=== PATIENT | male | born 1995 | race Caucasian/White ===

== ENCOUNTER 2020-02-06 05:45 | Emergency (ER) | payer OTHER ==
[2020-02-06] MEDS ORDERED: Lactated Ringers 1,000 ML IV SCH (06:00)
--- NOTE | 2020-02-06 06:03 | EDM.PDOC ---
ED HPI GENERAL MEDICAL PROBLEM <CelesteGrabiel Burciaga - Last Filed: 02/06/20 10:06> - General Source of Information: Reports: Patient, EMS History Limitations: Reports: No Limitations <Sky Wadehen Patrica - Last Filed: 02/06/20 19:01> - General Chief Complaint: Drug or Alcohol Abuse Stated Complaint: [facility] Time Seen by Provider: 02/06/20 05:45 - History of Present Illness INITIAL COMMENTS - FREE TEXT/NARRATIVE: Mr. Ivey is a very pleasant 24-year-old man with no chronic medical problems, on no medications, who is now brought to the ED by EMS after they were called by his girlfriend, after he fell unresponsive. EMS found the patient to be unresponsive with pinpoint pupils and significant diaphoresis. Accu-Chek was 277. They administered 2 mg of Narcan, which they state woke the patient, then a second 2 mg of Narcan after he was loaded into the ambulance, as they felt he was getting a bit lethargic. They report that on their device test engineer, the patient appeared to be in atrial fibrillation with RVR. The patient reported to the paramedics that he had snorted oxycodone, however, they found no drugs at the scene. They reported that the patient denied drinking alcohol tonight, however, the patient's girlfriend told them that he had been drinking. Here in the ED, the patient is found to be hemodynamically stable, afebrile, saturating 96% on room air. His initial rhythm on the chemical plant operator appeared to be consistent with atrial fibrillation with RVR, however, he spontaneously converted to a NSR before we could acquire an ECG. The patient denied feeling any palpitations this morning. The patient tells me that he had snorted oxycodone that he purchased on the street. He does not recall the quantity, although he states that he snorted the oxycodone over the course of only a few hours last night. He states that he smoked some marijuana yesterday, but denies ingesting any other drugs. He states that he has been using oxycodone on and off for the past couple of years, and denies using any other opioids, such as heroin. This is the first time that he has ever overdosed. Other than this morning's event, the patient denies recent fever, chills, sore throat, ear pain, nasal or sinus congestion, cough, dyspnea, chest pain, palpitations, nausea, vomiting, constipation, diarrhea, abdominal pain, urinary symptoms, recent weight gain or weight loss, recent bloody bowel movements or black bowel movements, recent joint aches, headaches, or rashes. The patient does not have a PCP. (Ross Wade) - Related Data Allergies Allergy/AdvReac Type Severity Reaction Status Date / Time amoxicillin Allergy Unknown Other Verified 02/06/20 05:58 Past Medical History Psychiatric History: Reports: ADHD (as a child) - Past Surgical History HEENT Surgical History: Reports: Oral Surgery (wisdom teeth extraction) <Ross Wade - Last Filed: 02/06/20 19:01> Social & Family History - Tobacco Use Smoking Status *Q: Current Every Day Smoker Tobacco Use Within Last Twelve Months: Smokeless Tobacco (Chewed tobbacco from 15 yo to 19 yo) Years of Tobacco use: 5 Packs/Tins Daily: 1 - Alcohol Use Alcohol Use History: Yes Alcohol Use Frequency: Socially (occasionally to excess) - Recreational Drug Use Recreational Drug Use: Yes Drug Use in Last 12 Months: Yes Recreational Drug Type: Reports: Marijuana/Hashish (smokes on occasion), Oxycodone (snorts on occasion since 2018) - Living Situation & Occupation Living situation: Reports: Single, with Significant Other (Girlfriend + her son) Occupation: Employed (Auto body repair) <Ross Wade - Last Filed: 02/06/20 19:01> ED ROS GENERAL - Review of Systems Review Of Systems: Comprehensive ROS is negative, except as noted in HPI. <Ross Wade - Last Filed: 02/06/20 19:01> - Physical Exam Exam: See Below Exam Limited By: No Limitations General Appearance: WD/WN, No Apparent Distress, Other (Yawns frequently) Eye Exam: Bilateral Eye: EOMI, Normal Inspection, PERRL Ears: Normal External Exam, Hearing Grossly Normal Nose: Normal Inspection Throat/Mouth: Normal Inspection, Normal Lips, Normal Voice, No Airway Compromise Head Exam: Atraumatic, Normocephalic Neck: Normal Inspection, Full Range of Motion Respiratory/Chest: No Respiratory Distress, Lungs Clear, Normal Breath Sounds, No Accessory Muscle Use Cardiovascular: Normal Peripheral Pulses, Regular Rate, Rhythm, No Edema, No Gallop, No JVD, No Murmur, No Rub GI/Abdominal: Normal Bowel Sounds, Soft, Non-Tender, No Organomegaly, No Distention, No Abnormal Bruit, No Mass (Male) Exam: Deferred Rectal (Males) Exam: Deferred Neuro Exam (Abbreviated): Oriented, Normal Cognition, No Motor/Sensory Deficits Back Exam: Normal Inspection, Full Range of Motion, NT Extremities: Normal Inspection, Normal Range of Motion, No Pedal Edema, Normal Capillary Refill Psychiatric: Normal Affect Skin Exam: Warm, Dry, Intact, Normal Color, No Rash <Ross Wade A - Last Filed: 02/06/20 19:01> EKG INTERPRETATION EKG Date: 02/06/20 Time: 05:52 Rhythm: NSR Rate (Beats/Min): 93 [place]: Normal P-Wave: Present QRS: Normal ST-T: Normal QT: Normal Comparison: NA - No Prior EKG <Ross Wade A - Last Filed: 02/06/20 19:01> Course <Grabiel Alonso A - Last Filed: 02/06/20 10:06> <Ross Wade A - Last Filed: 02/06/20 19:01> - Vital Signs Last Recorded V/S: Last Vital Signs Temp 36.7 C 02/06/20 10:44 Pulse 80 02/06/20 10:44 Resp 16 02/06/20 10:44 BP 117/60 02/06/20 10:44 Pulse Ox 97 02/06/20 10:44 - Orders/Labs/Meds Orders: Active Orders 24 hr Category Date Time Status EKG Documentation Completion [RC] STAT Care 02/06/20 05:56 Active Labs: Laboratory Tests 02/06/20 02/06/20 02/06/20 Range/Units 06:10 06:10 06:10 WBC 11.03 H (4.23-9.07) K/mm3 RBC 4.69 (4.63-6.08) M/mm3 Hgb 15.2 (13.7-17.5) gm/dl Hct 44.5 (40.1-51.0) % MCV 94.9 H (79.0-92.2) fl MCH 32.4 H (25.7-32.2) pg MCHC 34.2 (32.2-35.5) g/dl RDW Std Deviation 41.6 (35.1-43.9) fL Plt Count 202 (163-337) K/mm3 MPV 8.7 L (9.4-12.3) fl Neutrophils % (Manual) 83 H (40-60) % Band Neutrophils % 0 (0-10) % Lymphocytes % (Manual) 13 L (20-40) % Atypical Lymphs % 0 % Monocytes % (Manual) 4 (2-10) % Eosinophils % (Manual) 0 L (0.8-7.0) % Basophils % (Manual) 0 L (0.2-1.2) Platelet Estimate Adequate Anisocytosis 1+ slight RBC Morph Comment Not Reportable Sodium 140 (136-145) mEq/L Potassium 3.6 (3.5-5.1) mEq/L Chloride 101 (98-107) mEq/L Carbon Dioxide 28 (21-32) mEq/L Anion Gap 14.6 (5-15) BUN 16 (7-18) mg/dL Creatinine 1.6 H (0.7-1.3) mg/dL Est Cr Clr Drug Dosing 83.48 mL/min Estimated GFR (MDRD) 54 (>60) mL/min BUN/Creatinine Ratio 10.0 L (14-18) Glucose 208 H (74-106) mg/dL Hemoglobin A1c (4.50-6.20) % Calcium 8.9 (8.5-10.1) mg/dL Magnesium 2.0 (1.8-2.4) mg/dl Total Bilirubin 0.8 (0.2-1.0) mg/dL AST 34 (15-37) U/L ALT 39 (16-63) U/L Alkaline Phosphatase 59 (46-116) U/L Troponin I < 0.017 (0.00-0.056) ng/mL Total Protein 6.8 (6.4-8.2) g/dl Albumin 3.8 (3.4-5.0) g/dl Globulin 3.0 gm/dL Albumin/Globulin Ratio 1.3 (1-2) Salicylates 0.2 L (2.8-20) mg/dL Urine Opiates Screen (RCKMMU=640) Ur Buprenorphine Scrn (CUTOFF=10) Ur Oxycodone Screen (TJW5LY=656) Urine Methadone Screen (ZJH4EP=086) Ur Propoxyphene Screen (PTBSEC=827) Acetaminophen 0 L (10-30) ug/mL Ur Barbiturates Screen (FGPLHK=760) Ur Tricyclics Screen (STEZIH=294) Ur Phencyclidine Scrn (CUTOFF=25) Ur Amphetamine Screen (FELGRD=090) U Methamphetamines Scrn (SRKCJR=559) U Benzodiazepines Scrn (NDZDNA=606) U Cocaine Metab Screen (AOJNEM=985) U Marijuana (THC) Screen (CUTOFF=50) Ethyl Alcohol 0.00 (0.00) gm% 02/06/20 02/06/20 Range/Units 06:10 09:10 WBC (4.23-9.07) K/mm3 RBC (4.63-6.08) M/mm3 Hgb (13.7-17.5) gm/dl Hct (40.1-51.0) % MCV (79.0-92.2) fl MCH (25.7-32.2) pg MCHC (32.2-35.5) g/dl RDW Std Deviation (35.1-43.9) fL Plt Count (163-337) K/mm3 MPV (9.4-12.3) fl Neutrophils % (Manual) (40-60) % Band Neutrophils % (0-10) % Lymphocytes % (Manual) (20-40) % Atypical Lymphs % % Monocytes % (Manual) (2-10) % Eosinophils % (Manual) (0.8-7.0) % Basophils % (Manual) (0.2-1.2) Platelet Estimate Anisocytosis RBC Morph Comment Sodium (136-145) mEq/L Potassium (3.5-5.1) mEq/L Chloride (98-107) mEq/L Carbon Dioxide (21-32) mEq/L Anion Gap (5-15) BUN (7-18) mg/dL Creatinine (0.7-1.3) mg/dL Est Cr Clr Drug Dosing mL/min Estimated GFR (MDRD) (>60) mL/min BUN/Creatinine Ratio (14-18) Glucose (74-106) mg/dL Hemoglobin A1c 5.30 (4.50-6.20) % Calcium (8.5-10.1) mg/dL Magnesium (1.8-2.4) mg/dl Total Bilirubin (0.2-1.0) mg/dL AST (15-37) U/L ALT (16-63) U/L Alkaline Phosphatase (46-116) U/L Troponin I (0.00-0.056) ng/mL Total Protein (6.4-8.2) g/dl Albumin (3.4-5.0) g/dl Globulin gm/dL Albumin/Globulin Ratio (1-2) Salicylates (2.8-20) mg/dL Urine Opiates Screen Negative (LOHNRO=417) Ur Buprenorphine Scrn Negative (CUTOFF=10) Ur Oxycodone Screen Negative (VXI3AH=187) Urine Methadone Screen Negative (JJA7YU=123) Ur Propoxyphene Screen Negative (BNGQKT=160) Acetaminophen (10-30) ug/mL Ur Barbiturates Screen Negative (GHEWUN=375) Ur Tricyclics Screen Negative (WXENBJ=344) Ur Phencyclidine Scrn Negative (CUTOFF=25) Ur Amphetamine Screen Negative (URUZKX=479) U Methamphetamines Scrn Negative (FFOEZT=938) U Benzodiazepines Scrn Negative (VJHIMD=171) U Cocaine Metab Screen Negative (CLGSZC=359) U Marijuana (THC) Screen Presumptive positive H (CUTOFF=50) Ethyl Alcohol (0.00) gm% Meds: Medications Discontinued Medications Generic Name Dose Route Start Last Admin Trade Name Freq PRN Reason Stop Dose Admin Lactated Ringer's 1,000 mls @ 125 mls/hr 02/06/20 06:00 02/06/20 06:03 Ringers, Lactated IV 125 mls/hr ASDIRECTED [facility] Administration - Re-Assessments/Exams Free Text/Narrative Re-Assessment/Exam: 02/06/20 10:07 His UDS was positive for marijuana. He is doing good. I will discharge him home. (Grabiel Alonso) 02/06/20 05:58 As above, EMS was called to the patient's residence by his girlfriend after he fell unresponsive. They found him to have pinpoint pupils with diaphoresis. He regained consciousness after 2 mg of Narcan, and even more so after a second dose of Narcan. Their rhythm strip indicated atrial fibrillation, and I agree that he appeared to be in atrial fibrillation on our monitor when he first arrived, however, before we could acquire an ECG, he appears to have converted to a normal sinus rhythm, thus his ECG is normal. I have ordered a work-up that includes blood work and a urine drug screen. In the meantime, the patient will be given IV fluid. 02/06/20 07:15 The patient's CBC is remarkable for WBC count mildly elevated at 11.03, but with 0% bandemia. The remainder of his CBC is unremarkable. His CMP is remarkable for a Cr elevated at 1.6, but with a BUN normal at 16. His blood glucose is elevated at 208, with the remainder of his CMP being unremarkable. His magnesium level is within normal limits at 2.0. His troponin is undetectably low. His acetaminophen level is 0. His EtOH level is 0.00. His Hgb A1c is within normal limits at 5.30%. His salicylate level and urine drug screen are still pending. Case discussed with Dr. Alonso, and care of the patient turned over to him at this time, for change of shift. (Ross Wade) Departure - Departure Time of Disposition: 10:10 Condition: Good - Discharge Information *PRESCRIPTION DRUG MONITORING PROGRAM REVIEWED*: Not Applicable *COPY OF PRESCRIPTION DRUG MONITORING REPORT IN PATIENT IHSAN: Not Applicable <Grabiel Alonso - Last Filed: 02/06/20 10:06> <Ross Wade - Last Filed: 02/06/20 19:01> - Departure Disposition: Home, Self-Care 01 Clinical Impression: Marijuana use Accidental drug overdose Qualifiers: Encounter type: initial encounter Qualified Code(s): T50.901A - Poisoning by unspecified drugs, medicaments and biological substances, accidental (unintentional), initial encounter Opioid overdose Qualifiers: Encounter type: initial encounter Injury intent: accidental or unintentional Qualified Code(s): T40.2X1A - Poisoning by other opioids, accidental (u nintentional), initial encounter - Discharge Information Instructions: Opioid Overdose Referrals: PCP,None [Primary Care Provider] - Additional Instructions: Rest today. Do not take any opiods. You almost today from them. Please return if you are worse. Sepsis Event Note (ED) - Evaluation Sepsis Screening Result: No Definite Risk <Ross Wade - Last Filed: 02/06/20 19:01> - Focused Exam Vital Signs: Vital Signs Temp Pulse Resp BP Pulse Ox 02/06/20 10:44 36.7 C 80 16 117/60 97 - My Orders Last 24 Hours: My Active Orders 02/06/20 05:56 EKG Documentation Completion [RC] STAT - Assessment/Plan Last 24 Hours: My Active Orders 02/06/20 05:56 EKG Documentation Completion [RC] STAT
[2020-02-06 06:47] LABS: ACETAMINOPHEN 0 ug/mL (10-30)
[2020-02-06 07:07] LABS: HEMOGLOBIN A1C 5.3 % (4.50-6.20)
== END 2020-02-06 10:34 | disposition home or self-care (01) ==
LOC: JD.ED 05:45
DX: T40.2X1A Poisoning by other opioids, accidental (unintentional), initial encounter (principal); F12.90 Cannabis use, unspecified, uncomplicated; F17.210 Nicotine dependence, cigarettes, uncomplicated; Z88.1 Allergy status to other antibiotic agents
CPT/HCPCS: 36415; 80053; 80306; 80307; 83036; 83735; 84484; 85007; 85027; 93005; 99284; J7120; 93010; 99283